=== PATIENT | female | born 1950 | race Caucasian/White ===

== ENCOUNTER 2016-09-25 13:49 | Inpatient (IN) | payer BC, OTHER ==
[~2016-09-25] VITALS: Ht 165.1 cm; Wt 58.0 kg
[~2016-09-25 13:49] MED LIST: ACET-1256 PO; ASPI81TA28 PO; ATOR-24 PO; CHOL100010 PO; CLOP1TAB15 PO; COEN1CAP28 PO; LISI2.5T5 PO; MAGN400T6 PO; METO25TA56 PO; MULT-506 PO; NITR0.4S UT; PROM25TA16 PO; ZNT150 PO
[2016-09-25] MEDS ORDERED: OMEG10007 PO (14:19)
[2016-09-25] MEDS ORDERED: CHOL1000 PO (14:19)
[2016-09-25] MEDS ORDERED: ATOR-22 PO (14:19)
[2016-09-25] MEDS ORDERED: CYAN10005 PO (14:19)
[2016-09-25 14:51] LABS: HEMATOCRIT 43.1 % (37-47); MEAN CELL VOLUME 93.7 fL (80-100); MEAN CORPUSCULAR HEMOGLOBIN 32.8 pg (25-34); PLATELET COUNT 275 K/uL (130-400); WHITE BLOOD COUNT 8.44 K/uL (4.8-10.8)
[2016-09-25 15:04] LABS: PROTHROMBIN TIME (PATIENT) 10.9 SECONDS (9.0-12.0)
[2016-09-25 15:07] LABS: BUN/CREATININE RATIO 19.3 (10-20); CALCIUM 9.2 mg/dl (8.5-10.1); CREATININE 0.84 mg/dl (0.60-1.20); POTASSIUM 4.3 mmol/L (3.5-5.1)
--- NOTE | 2016-09-25 15:09 | DIAGNOSTIC IMAGING REPORT ---
CHEST ONE VIEW PORTABLE HISTORY: Atypical chest pain. COMPARISON: Chest 03/21/2016. FINDINGS: The lungs are clear. Cardiac silhouette is normal in size. No pleural effusions. No pneumothorax. IMPRESSION: No acute process. Electronically signed by: Kartik Nair M.D. 09/25/2016 3:08 PM Dictated Date/Time: 09/25/2016 3:05 PM
[2016-09-25 15:12] LABS: ALB/GLOB RATIO 1.2 (0.9-2); CKMB/CK RATIO 1.2 (0-3.0)
[2016-09-25] MEDS ORDERED: NITROGLYCERIN 0.4 MG SL PER TAB CHARGE SL PRN (16:00)
[2016-09-25] MEDS ORDERED: ZOLPIDEM TARTRATE 5 MG TAB PO PRN (16:00)
[2016-09-25] MEDS ORDERED: MoRPHine SULFATE 2 MG/ML CARP IV PRN (16:00)
[2016-09-25] MEDS ORDERED: PROMETHAZINE HCL 25 MG TAB PO PRN (16:00)
[2016-09-25] MEDS ORDERED: ONDANSETRON INJ 2 MG/ML 2 ML VIAL IV PRN (16:00)
[2016-09-25] MEDS ORDERED: HEPARIN IV LOW DOSE NO BOLUS SCH (16:05)
[2016-09-25 17:09] LABS: CKMB/CK RATIO 1.1 (0-3.0)
[2016-09-25] MEDS ORDERED: METOPROLOL TARTRATE 25 MG TAB PO ONE (18:30)
[2016-09-25] MEDS: NSS + 20MEQ KCL 1000ML 1,000 ML IV SCH (18:31)
[2016-09-25] MEDS: HEPARIN 25,000 UNIT/500ML D5W 500 ML IV PRN (18:35)
[2016-09-25 18:47] VITALS: BP 130/80; PULSE 80; TEMP 36.6; Ht 165.1 cm; Wt 58.0 kg
[2016-09-25 19:25] VITALS: BP 138/87; PULSE 76; TEMP 36.9; O2SAT 94
[2016-09-25 20:00] VITALS: O2SAT 94
[2016-09-25] MEDS: METOPROLOL TARTRATE 25 MG TAB PO SCH (21:00)
[2016-09-25] MEDS ORDERED: NON-FORMULARY MEDICATION (Coenzyme Q10 (Ubidecarenone) (Co Q10) 2 CAP) PO SCH (21:00)
[2016-09-25] MEDS: RANITIDINE HCL 150 MG TAB PO SCH (21:32)
--- NOTE | 2016-09-25 21:32 | History and Physical ---
History & Physical Date & Time of Service: Sep 25, 2016 at 21:20 Chief Complaint: Hx Of Non-St Elevation Myocardial Infarction Primary Care Physician: Kirk Palm M.D. History of Present Illness Source: patient, spouse The patient is a 66-year-old female, status post NSTEMI in March 2016, and has since undergone supervised cardiac rehabilitation, and then graduated to her own cardiac rehabilitation. She reports that 4 days ago she had noted herself being more tired than usual, but continued to go to her walking and then treadmill self supervised exercise program. Yesterday she changed from treadmill to elliptical, maintained her heart rate in the low 100s, which was within her guidelines, and then today developed left-sided chest discomfort and shortness of breath. She reports at this point she stopped her exercise program again was feeling fatigued, she then attempted to walk back home, became too tired, and sat down and called her . When she got home she called her PCP, who then advised calling her computer hardware technician who then advised coming to the emergency department for assessment. Past Medical/Surgical History Medical Problems: (1) Hyperlipidemia Nec/Nos Status: Chronic (2) Osteoporosis Nos Status: Chronic (3) Osteoporosis Nos Status: Chronic (4) Rectal & Anal Hemorrhage Status: Resolved Family History Cancer Heart disease Social History Smoking Status: Never Smoker Smokeless Tobacco Use: No Alcohol Use: none Drug Use: none Marital Status: Housing status: lives with family Occupational Status: employed Multi-Drug Resistant Organisms History of MDRO: No Allergies Coded Allergies: No Known Allergies (Unverified , 03/17/16) Home Medications Scheduled Aspirin (Aspirin Ec), 81 MG PO DAILY Atorvastatin (Lipitor), 20 MG PO DAILY Cholecalciferol (Vitamin D3), 2,000 UNITS PO DAILY Clopidogrel (Plavix), 75 MG PO QAM Coenzyme Q10 (Ubidecarenone) (Co Q10), 2 CAP PO BID Cyanocobalamin (Vitamin B-12), 1,000 MCG PO DAILY Fish Oil ([place]-3), 600 MG PO BID Magnesium Oxide (Mag-Ox), 400 MG PO DAILY Metoprolol Tartrate (Lopressor) (Lopressor), 25 MG PO BID Multivitamin (Multivitamin), 1 TAB PO QAM Ranitidine HCl (Ranitidine HCl), 150 MG PO BID Scheduled PRN Acetaminophen (Tylenol), 1,000 MG PO UD PRN for Migraine Nitroglycerin (Nitrostat), 0.4 MG UT UD PRN for Chest Pain Promethazine HCl (Promethazine HCl), 25 MG PO Q6H PRN for Migraine Review of Systems The patient denies cough, lower extremity swelling, vision change, hearing change, sore throat, fevers, chills, sweats, weight change, nausea, vomiting, abdominal pain, pelvic pain, blood in urine or stool, dysuria, urinary frequency or urgency, lightheadedness, dizziness, headache, memory loss, rash, abnormal bruising or bleeding, imbalance, focal weakness, numbness or tingling in arms or legs, arthralgias or myalgias, back or neck pain, night sweats, or allergy symptoms. The review of systems is otherwise negative other than for that already noted above, and at least 10 systems have been reviewed. Physical Exam Vital Signs Date Time Temp Pulse Resp B/P Pulse Ox O2 Delivery O2 Flow Rate FiO2 09/25/16 20:00 94 Room Air 09/25/16 19:25 36.9 76 16 138/87 94 Room Air 09/25/16 18:47 36.6 80 16 130/80 Room Air 09/25/16 17:32 36.6 79 16 129/79 97 09/25/16 17:06 79 16 97 09/25/16 17:01 129/79 09/25/16 16:48 141/89 09/25/16 16:06 77 13 99 09/25/16 16:01 145/84 09/25/16 16:00 80 16 98 09/25/16 15:31 144/93 09/25/16 15:30 76 17 100 09/25/16 15:24 73 09/25/16 15:01 143/83 09/25/16 14:42 97 Room Air 09/25/16 14:40 71 18 143/74 99 Room Air 09/25/16 13:52 36.6 78 18 142/86 98 Room Air The patient is awake, well-developed and adequately nourished, alert and oriented 3, normocephalic and atraumatic, lying in bed and in no acute distress. HEENT--PERRL, EOMI, mucous membranes and oropharynx dry. Neck--supple, no JVD or bruits, thyroid normal, trachea midline, no adenopathy. Heart--normal S1 and S2, no extra beats, no murmurs, rubs or gallops. Lungs--clear bilaterally with good air movement, no respiratory distress, no accessory muscle use. Abdomen--normal bowel sounds and soft, nontender and nondistended, no hernias or masses, no organomegaly. Extremities--no cyanosis, clubbing or edema. There are good distal pulses b/l. Dermatologic--normal skin turgor, normal color, warm and dry, no abnormal lymph nodes, no rash. Neurologic--cranial nerves II through XII grossly intact, motor and sensory examination normal. Rheumatologic--normal range of motion, nontender, muscles and joints. Psychiatric--mildly anxious. Diagnostics Laboratory Results Results Past 24 Hours Test 09/25/16 14:36 09/25/16 14:39 09/25/16 16:24 Range/Units White Blood Count 8.44 4.8-10.8 K/uL Red Blood Count 4.60 4.2-5.4 M/uL Hemoglobin 15.1 12.0-16.0 g/dL Hematocrit 43.1 37-47 % Mean Corpuscular Volume 93.7 80-100 fL Mean Corpuscular Hemoglobin 32.8 25-34 pg Mean Corpuscular Hemoglobin Concent 35.0 32-36 g/dl RDW Standard Deviation 41.4 36.4-46.3 fL RDW Coefficient of Variation 12.3 11.5-14.5 % Platelet Count 275 130-400 K/uL Mean Platelet Volume 10.0 7.4-10.4 fL Prothrombin Time 10.9 9.0-12.0 SECONDS Prothromb Time International Ratio 1.0 0.9-1.1 Activated Partial Thromboplast Time 25.7 21.0-31.0 SECONDS Partial Thromboplastin Ratio 1.0 Sodium Level 141 136-145 mmol/L Potassium Level 4.3 3.5-5.1 mmol/L Chloride Level 105 98-107 mmol/L Carbon Dioxide Level 30 21-32 mmol/L Anion Gap 6.0 3-11 mmol/L Blood Urea Nitrogen 16 7-18 mg/dl Creatinine 0.84 0.60-1.20 mg/dl Est Creatinine Clear Calc Drug Dose 58.5 ml/min Estimated GFR () 85.1 Estimated GFR (Non- 73.4 BUN/Creatinine Ratio 19.3 10-20 Random Glucose 94 70-99 mg/dl Calcium Level 9.2 8.5-10.1 mg/dl Total Bilirubin 0.6 0.2-1 mg/dl Aspartate Amino Transf (AST/SGOT) 24 15-37 U/L Alanine Aminotransferase (ALT/SGPT) 33 12-78 U/L Alkaline Phosphatase 99 45-117 U/L Total Creatine Kinase 95 90 26-192 U/L Creatine Kinase MB 1.1 1.0 0.5-3.6 ng/ml Creatine Kinase MB Ratio 1.2 1.1 0-3.0 Total Protein 7.4 6.4-8.2 gm/dl Albumin 4.1 3.4-5.0 gm/dl Globulin 3.3 2.5-4.0 gm/dl Albumin/Globulin Ratio 1.2 0.9-2 Bedside Troponin I 0.000 0-0.045 ng/ml Troponin I 0.046 0-0.045 ng/ml Diagnostic Radiology Patient Name: RAY WILEY Unit Number: [id number] Dictated: 09/25/161504 Transcribed: 09/25/16 150 [employer] Printed Date/Time: [~ rep prt dt]/[~ rep prt tm] [~ rep ct labl] - [~ rep ct ivnm] [facility] [place] [address] Dictated: 09/25/161504 Transcribed: 09/25/16 [employer] Printed Date/Time: [~ rep prt dt]/[~ rep prt tm] [~ rep ct labl] - [~ rep ct ivnm] CHEST ONE VIEW PORTABLE HISTORY: Atypical chest pain. COMPARISON: Chest 03/21/2016. FINDINGS: The lungs are clear. Cardiac silhouette is normal in size. No pleural effusions. No pneumothorax. IMPRESSION: No acute process. Electronically signed by: Kartik Nair M.D. 09/25/2016 3:08 PM Dictated Date/Time: 09/25/2016 3:05 PM The status of this report is Signed. Draft = Not yet reviewed or approved by Radiologist. Signed = Reviewed and approved by Radiologist. <AttendingPhy></AttendingPhy> <FamilyPhy>Kirk Palm M.D.</FamilyPhy> < PrimaryPhy>Kirk Palm M.D.</PrimaryPhy> <UnitNumber>[id number]</ UnitNumber> <VisitNumber>[id number]</VisitNumber> <PatientName>RAY WILEY</PatientName> <DateOfBirth>1950</DateOfBirth> <Location>[facility]</ Location> <ServiceDate>09/25/16</ServiceDate> <MNE>ESINDI</MNE> <OrderingPhy>ED , PROTOCOL</OrderingPhy> <OrderingPhyMNE>f rep ord dr hassan</OrderingPhyMNE> < DictatingPhyMNE>f rep dict dr hassan</DictatingPhyMNE> <CCListMNE>f rep ct mne</ CCListMNE> <AdmittingPhyMNE>f pt admit dr hassan</AdmittingPhyMNE> <AttendingPhyMNE >f pt attend dr hassan</AttendingPhyMNE> <ConsultingPhyMNE>f pt consult dr hassan</ConsultingPhyMNE> <FamilyPhyMNE>f pt fam dr hassan</FamilyPhyMNE> <OtherPhyMNE>f pt other dr hassan</OtherPhyMNE> < PrimaryPhyMNE>f pt prim care dr hassan</PrimaryPhyMNE> <ReferringPhyMNE>f pt referring dr hassan</ReferringPhyMNE> EKG EKG shows normal sinus rhythm at 72 bpm, with no acute ST-T changes, and no change from 03/22/2016. Impression Assessment and Plan CAD/hypertension/ NSTEMI/escalating symptoms consistent with unstable angina-- the patient will be admitted to the telemetry unit, for serial cardiac enzymes, cardiac rhythm monitoring and a 2-D echocardiogram with Dopplers. We'll continue aspirin 81 mg by mouth daily and clopidogrel 75 mg by mouth every morning. We will increase metoprolol tartrate 25 mg by mouth twice a day to 37.5 mg by mouth twice a day, with additional dose now. We'll place on Nitropaste 1 inch anterior chest wall every 6 hours, and heparin drip low-dose no bolus per weight-based protocol. We'll consult her computer hardware technician Dr. Kamara. Hypercholesterolemia--continue atorvastatin 20 mg by mouth daily and CoQ10 100 mg by mouth twice a day. GERD continue ranitidine 150 mg by mouth twice a day. Vitamin B-12 deficiency--continue supplemental thousand micrograms by mouth daily. Level of Care Telemetry Advanced Directives Existing Advance Directive: No Existing Living Will: Yes Existing Power of Chip Person: Yes Resuscitation Status FULL RESUSCITATION VTE Prophylaxis VTE Risk Assessment Done? Y/N: Yes Risk Level: Moderate Given or contraindicated: Unfractionated heparin SQ
[2016-09-25] MEDS: NITROGLYCERIN OINT 2% 1GM PACKET EXT SCH (21:38)
[2016-09-25 21:48] VITALS: BP 122/78; PULSE 64
--- NOTE | 2016-09-25 22:16 | EMERGENCY ROOM VISIT NOTE ---
History Report prepared by Ruchi: Duane Blackburn Under the Supervision of: Dr. Tye Hawley M.D. First contact with patient: 14:57 Chief Complaint: CHEST PAIN Stated Complaint: CHEST PAIN Nursing Triage Summary: pt reports having mi in mar after working out today got sharp feeling in left chest. denies any nausea feels clammy. started at 1315 History of Present Illness The patient is a 66 year old female who presents to the Emergency Room with complaints of resolved left-sided chest pain that occurred earlier today. The episode lasted about 30 minutes in total. She notes that the pain was sharp in nature. The patient was on a recumbent bike when the pain started. She had an NSTEMI on March 17. The patient notes that the pain when she had the WV was pressure-like, lasted all day, and was in the middle of her chest. Her pain today does not resemble the pain from her NSTEMI. She did not have any stents or angioplasty. The patient has been doing cardiac rehabilitation exercises. She was doing her rehabilitation exercises today when she had the pain, but notes that she was not over-exerting herself. She denies any fevers, cough, or calf pain or swelling. The patient has chronic hip pain but denies any swelling or pain to her legs otherwise. She denies any history of pulmonary emboli. The patient was not on any recent long trips. She does not smoke. Source of History: patient Onset: earlier today Position: chest (left) Quality: sharp Timing: resolved Modifying Factors (Worsening): exertion Associated Symptoms: No cough, No fevers Review of Systems See HPI for pertinent positives & negatives. A total of 10 systems reviewed and were otherwise negative. Past Medical & Surgical Medical Problems: (1) Chest pain (2) History of non-ST elevation myocardial infarction (NSTEMI) (3) Hyperlipidemia Nec/Nos (4) NSTEMI (non-ST elevated myocardial infarction) (5) Osteoporosis Nos (6) Osteoporosis Nos (7) Rectal & Anal Hemorrhage (8) Unstable angina Family History Cancer Heart disease Social History Smoking Status: Never Smoker Alcohol Use: occasionally Marital Status: Housing Status: lives with family Occupation Status: employed Current/Historical Medications Scheduled Aspirin (Aspirin Ec), 81 MG PO DAILY Atorvastatin (Lipitor), 20 MG PO DAILY Cholecalciferol (Vitamin D3), 2,000 UNITS PO DAILY Clopidogrel (Plavix), 75 MG PO QAM Coenzyme Q10 (Ubidecarenone) (Co Q10), 2 CAP PO BID Cyanocobalamin (Vitamin B-12), 1,000 MCG PO DAILY Fish Oil ([place]-3), 600 MG PO BID Magnesium Oxide (Mag-Ox), 400 MG PO DAILY Metoprolol Tartrate (Lopressor) (Lopressor), 25 MG PO BID Multivitamin (Multivitamin), 1 TAB PO QAM Ranitidine HCl (Ranitidine HCl), 150 MG PO BID Scheduled PRN Acetaminophen (Tylenol), 1,000 MG PO UD PRN for Migraine Nitroglycerin (Nitrostat), 0.4 MG UT UD PRN for Chest Pain Promethazine HCl (Promethazine HCl), 25 MG PO Q6H PRN for Migraine Allergies Coded Allergies: No Known Allergies (Unverified , 03/17/16) Physical Exam Vital Signs Date Time Temp Pulse Resp B/P Pulse Ox O2 Delivery O2 Flow Rate FiO2 09/25/16 15:31 144/93 09/25/16 15:30 76 17 100 09/25/16 15:24 73 09/25/16 15:01 143/83 09/25/16 14:42 97 Room Air 09/25/16 14:40 71 18 143/74 99 Room Air 09/25/16 13:52 36.6 78 18 142/86 98 Room Air Physical Exam Constitutional: Vital signs reviewed. Eyes: Pupils are equal round reactive to light. Conjunctiva are noninjected. ENT: Pharynx is clear without erythema or exudate. Mucous membranes are moist. Neck supple without meningeal signs. Respiratory: Clear to auscultation bilaterally. Breath sounds are equal bilaterally. Cardiovascular: Regular rate and rhythm. No rubs or gallops. GI: Soft, nondistended and nontender. Bowel sounds are present. Musculoskeletal: No peripheral edema. No lower extremity tenderness. Integumentary: No cyanosis. Neurological: The patient is awake and alert. No focal deficits. Psychiatric: Normal affect. Medical Decision & Procedures ER Provider Diagnostic Interpretation: X-ray results as stated below per interpretation by me and the radiologist: CHEST ONE VIEW PORTABLE HISTORY: Atypical chest pain. COMPARISON: Chest 03/21/2016. FINDINGS: The lungs are clear. Cardiac silhouette is normal in size. No pleural effusions. No pneumothorax. IMPRESSION: No acute process. Electronically signed by: Kartik Nair M.D. 09/25/2016 3:08 PM Dictated Date/Time: 09/25/2016 3:05 PM Laboratory Results 09/25/16 14:36 09/25/16 14:36 Test 09/25/16 14:36 09/25/16 14:39 Red Blood Count 4.60 M/uL (4.2-5.4) Mean Corpuscular Volume 93.7 fL (80-100) Mean Corpuscular Hemoglobin 32.8 pg (25-34) Mean Corpuscular Hemoglobin Concent 35.0 g/dl (32-36) RDW Standard Deviation 41.4 fL (36.4-46.3) RDW Coefficient of Variation 12.3 % (11.5-14.5) Mean Platelet Volume 10.0 fL (7.4-10.4) Prothrombin Time 10.9 SECONDS (9.0-12.0) Prothromb Time International Ratio 1.0 (0.9-1.1) Activated Partial Thromboplast Time 25.7 SECONDS (21.0-31.0) Partial Thromboplastin Ratio 1.0 Anion Gap 6.0 mmol/L (3-11) Est Creatinine Clear Calc Drug Dose 58.5 ml/min Estimated GFR () 85.1 Estimated GFR (Non- 73.4 BUN/Creatinine Ratio 19.3 (10-20) Calcium Level 9.2 mg/dl (8.5-10.1) Total Bilirubin 0.6 mg/dl (0.2-1) Aspartate Amino Transf (AST/SGOT) 24 U/L (15-37) Alanine Aminotransferase (ALT/SGPT) 33 U/L (12-78) Alkaline Phosphatase 99 U/L (45-117) Total Protein 7.4 gm/dl (6.4-8.2) Albumin 4.1 gm/dl (3.4-5.0) Globulin 3.3 gm/dl (2.5-4.0) Albumin/Globulin Ratio 1.2 (0.9-2) Bedside Troponin I 0.000 ng/ml (0-0.045) Laboratory results as reviewed by me. ECG Indication: chest pain Rate (beats per minute): 72 Rhythm: normal sinus Findings: no acute ischemic change, no ectopy ED Course 1459: The patient was evaluated in room B11b. A complete history and physical exam was performed. 151: Reassessed the patient. She is not having any chest discomfort. I discussed the results with her. I recommended hospitalization. 1520: Discussed the case with Dr. Narvaez, [facility]. The patient will be evaluated. Medical Decision This is a 66-year-old female who presents with chest pain. Differential diagnosis includes unstable angina, WV, pleurisy, pericarditis, GERD. I did perform a limited focused review of portions of the patient's old chart on the electronic medical record. The patient had an NSETMI in March of last year. I did evaluate the patient as noted above. The patient is presenting with exertional chest pain. She does have a history of non-STEMI. She notes that when she was admitted to the hospital for her non-STEMI previously her initial troponin was negative. She is currently not having any chest discomfort. IV access was established. The patient was placed on a continuous satellite project site monitor. I did order and personally review the patient's 12-lead EKG and chest x-ray as described above. I did order and review the patient's blood work as noted in the electronic medical record. Initial troponin is negative. I did discuss the test results with the patient. I did recommend hospitalization for further evaluation. I did discuss the case with the hospitalist and cyanide case hardener. Consults Time Called: 1514 Consulting Physician: Dr. Narvaez [facility] Returned Call: [phone]: Discussed the case with Dr. Narvaez, [facility]. The patient will be evaluated. Impression Primary Impression: Exertional chest pain Scribe Attestation The scribe's documentation has been prepared under my direct and personally reviewed by me in its entirety. I confirm that the note above accurately reflects all work, treatment, procedures, and medical decision making performed by me. Departure Information Dispostion Being Evaluated By Hospitalist Referrals Kirk Palm M.D. (PCP) Patient Instructions [facility]
[2016-09-25] MEDS: ACETAMINOPHEN 325 MG TAB PO PRN (23:53)
[2016-09-25 23:59] VITALS: BP 109/66; PULSE 62; TEMP 36.9; O2SAT 93
[2016-09-26 01:35] LABS: PARTIAL THROMBOPLASTIN RATIO 1.4
[2016-09-26] MEDS ORDERED: HEPARIN IV BOLUS 4,000 UNIT in SYRINGE 0 ML IV ONE (02:45)
[2016-09-26] MEDS: NSS + 20MEQ KCL 1000ML 1,000 ML IV SCH ×2 (03:23→14:00)
[2016-09-26 03:41] VITALS: BP 95/51; PULSE 56; TEMP 37; O2SAT 97
[2016-09-26] MEDS: NITROGLYCERIN OINT 2% 1GM PACKET EXT SCH ×3 (05:30→12:53)
[2016-09-26] MEDS: ACETAMINOPHEN 325 MG TAB PO PRN (05:39)
[2016-09-26 08:12] LABS: BASO % 0.8 %; BASO ABS # 0.05 K/uL (0-0.2); COMPLETE YES; EOS % 0.5 %; HEMATOCRIT 40.1 % (37-47); IG% 0.2 %; LYMPH % 28.2 %; LYMPH ABS # 1.79 K/uL (1.2-3.4); MEAN CELL VOLUME 94.4 fL (80-100); MEAN CORPUSCULAR HEMOGLOBIN 31.5 pg (25-34); MEAN CORPUSCULAR HGB CONC 33.4 g/dl (32-36); MEAN PLATELET VOLUME 10.2 fL (7.4-10.4); MONO % 8.4 %; NEUT % 61.9 %; PLATELET COUNT 258 K/uL (130-400); RED BLOOD COUNT 4.25 M/uL (4.2-5.4); WHITE BLOOD COUNT 6.34 K/uL (4.8-10.8)
[2016-09-26 08:45] LABS: INR 1.1 (0.9-1.1); PARTIAL THROMBOPLASTIN RATIO 2.8; PROTHROMBIN TIME (PATIENT) 11.4 SECONDS (9.0-12.0)
[2016-09-26 08:54] LABS: ALKALINE PHOSPHATASE 80 U/L (45-117); ALT/SGPT 24 U/L (12-78); AST/SGOT 21 U/L (15-37); BLOOD UREA NITROGEN 9 mg/dl (7-18); BUN/CREATININE RATIO 11.6 (10-20); CALCIUM 8.6 mg/dl (8.5-10.1); CARBON DIOXIDE 25 mmol/L (21-32); CHLORIDE 109 mmol/L (98-107); CKMB/CK RATIO 1.5 (0-3.0); GLUCOSE 144 mg/dl (70-99); MAGNESIUM 2.1 mg/dl (1.8-2.4); POTASSIUM 3.8 mmol/L (3.5-5.1); SODIUM 143 mmol/L (136-145)
[2016-09-26] MEDS ORDERED: ASPIRIN 81 MG ECTAB PO SCH (09:00)
[2016-09-26] MEDS ORDERED: CYANOCOBALAMIN 500 MCG TAB (VIT B-12) PO SCH (09:00)
[2016-09-26] MEDS ORDERED: CLOPIDOGREL BISULFATE 75 MG TAB PO SCH (09:00)
[2016-09-26] MEDS ORDERED: MULTIVITAMIN TAB PO SCH (09:00)
[2016-09-26] MEDS ORDERED: ATORVASTATIN 20 MG TAB PO SCH (09:00)
[2016-09-26] MEDS ORDERED: MAGNESIUM OXIDE 400 MG TAB PO SCH (09:00)
[2016-09-26] MEDS ORDERED: CHOLECALCIFEROL 1000 INTER.UNIT TAB PO SCH (09:00)
[2016-09-26] MEDS: RANITIDINE HCL 150 MG TAB PO SCH (09:10)
[2016-09-26] MEDS: METOPROLOL TARTRATE 25 MG TAB PO SCH (09:10)
[2016-09-26 09:12] VITALS: BP 117/66; PULSE 78; TEMP 37; O2SAT 97
[2016-09-26] MEDS: HEPARIN 25,000 UNIT/500ML D5W 500 ML IV PRN (10:09)
[2016-09-26 10:47] VITALS: BP 98/60; PULSE 53; TEMP 36.8; O2SAT 95
[2016-09-26] MEDS ORDERED: NURSING VERBAL MED ORDER ONE (12:40)
--- NOTE | 2016-09-26 12:40 | EXERCISE STRESS ECHO ---
*NOTICE TO RECEIVING [employer] This information is strictly Confidential and protected under [place] law. [place] law prohibits you from making any further disclosure of this information unless further disclosure is expressly permitted by the written consent of the person to whom it pertains or is authorized by law. A general authorization for the release of medical or other information is not sufficient for this purpose. Hospital accepts no responsibility if the information is made available to any other person, INCLUDING THE PATIENT. Interpretation Summary * Name: RAY WILEY Study Date: 09/26/2016 10:31 AM BP: 95/51 mmHg * Patient Location: [facility] HR: 56 * : 1950 (M/d/yyyy) Gender: Female Height: 64 in * Age: 66 yrs Ethnicity: [place] Weight: 127 lb * Ordering Physician: Christopher. LAKEISHA Wilkerson * Performed By: Tita Leon * * Reason For Study: CHEST PAIN, HX OF NSTEMI * BSA: 1.6 m2 * -- Conclusions -- * 1. Negative exercise stress echocardiogram for ischemia at 83% MPHR. * 2. Negative stress ECG for ischemia. * 3. Excellent functional capacity. Exercised for 9:36 min, achieving 11 METS. No exercise induced chest pain. * 4. Normal resting LV size and function. No regional wall motion abnormalities. Normal RV size and function. No significant valvular pathology. * 5. Compared with prior resting TTE on 03/18/2016: Apical wall motion abnormality no longer present. Procedure Details * ECHOEX, CPT #[id number] * ECHO DOPPLER, CPT #[id number] * ECHO COLOR FLOW, CPT #[id number] Left Ventricular Findings with Stress * This was essentially a normal study. Left Ventricle * The left ventricle is normal in size. * There is normal left ventricular wall thickness. * Ejection Fraction = 65-70%. * Resting wall motion: Normal. Stress wall motion: Appropriate increase in Left ventricular systolic function and decrease in cavity size. No stress induced segmental wall motion abnormalities. * No regional wall motion abnormalities noted. Right Ventricle * The right ventricle is grossly normal size. * The right ventricular systolic function is normal as assessed by tricuspid annular plane systolic excursion (TAPSE) (normal >1.5 cm). Atria * The left atrial size is normal. * Right atrial size is normal. * No ASD detected; PFO is not assessed. Mitral Valve * The mitral valve is grossly normal. * There is no mitral valve stenosis. * There is trace mitral regurgitation. Tricuspid Valve * The tricuspid valve is not well visualized, but is grossly normal. * There is no tricuspid stenosis. * There is mild tricuspid regurgitation. * Right ventricular systolic pressure is normal. Aortic Valve * The aortic valve opens well. * The aortic valve is trileaflet. * Aortic stenosis is absent. * There is no significant aortic regurgitation. Pulmonic Valve * The pulmonary valve is inadequately visualized, but the Doppler data is adequate for interpretation. * Mild pulmonic valvular regurgitation. Great Vessels * The aortic root and proximal ascending aorta are normal sized. * No Doppler or imaging evidence of an aortic coarctation. Pericardium * There is no pericardial effusion. Stress Parameters * Normal baseline electrocardiogram. * Stress ECG: No ST changes. No arrhythmias. * No arrhythmia were noted with stress. * The stress portion of this study was personally supervised by the undersigned interpreting physician. * Rest heart rate was '75' BPM. * Rest blood pressure was '132/64' * Maximum heart rate achieved was 131 bpm. * Maximum heart rate was 83 % of maximum age-predicted heart rate. * Maximum blood pressure was '132/64' * Total exercise time was '8:50' * Maximum exercise MET level achieved was '11.0' METS * Maximum treadmill speed was '4.20' miles per hour. * Maximum treadmill elevation was '16.00'% grade. * Exercise was terminated due to 'fatigue.' * Target Heart Rate was not achieved due to fatigue. * The patient exhibited fatigue during exercise. * Normal blood pressure response to exercise. Left Ventricular Findings with Stress * The study was diagnostic quality. * The study was technically excellent with all images being of optimal quality. MMode 2D Measurements and Calculations IVSd 1.0 cm IVSs 1.5 cm LVIDd 4.5 cm LVIDs 2.7 cm LVPWd 0.87 cm LVPWs 1.5 cm IVS/LVPW 1.2 FS 39.1 % EDV(Teich) 92.6 ml ESV(Teich) 28.1 ml EF(Teich) 69.6 % EDV(cubed) 91.3 ml ESV(cubed) 20.7 ml EF(cubed) 77.4 % % IVS thick 49.4 % % LVPW thick 68.3 % LV mass(C)d 143.9 grams LV mass(C)dI 89.2 grams/m\S\2 LV mass(C)s 142.5 grams LV mass(C)sI 88.4 grams/m\S\2 CO(Teich) 3.5 l/min CI(Teich) 2.2 l/min/m\S\2 SV(Teich) 64.4 ml SI(Teich) 40.0 ml/m\S\2 CO(cubed) 3.9 l/min CI(cubed) 2.4 l/min/m\S\2 SV(cubed) 70.6 ml SI(cubed) 43.8 ml/m\S\2 ACS 1.6 cm LA dimension 3.2 cm asc Aorta Diam 2.8 cm LVOT diam 1.8 cm LVOT area 2.5 cm\S\2 LVAd ap4 19.2 cm\S\2 LVLd ap4 5.7 cm EDV(MOD-sp4) 53.8 ml LVAs ap4 9.6 cm\S\2 LVLs ap4 4.6 cm ESV(MOD-sp4) 17.0 ml EF(MOD-sp4) 68.4 % LVAd ap2 19.1 cm\S\2 LVLd ap2 6.4 cm EDV(MOD-sp2) 48.2 ml LVAs ap2 9.3 cm\S\2 LVLs ap2 4.8 cm ESV(MOD-sp2) 14.9 ml EF(MOD-sp2) 69.1 % CO(MOD-sp4) 2.0 l/min CI(MOD-sp4) 1.3 l/min/m\S\2 SV(MOD-sp4) 36.8 ml SI(MOD-sp4) 22.8 ml/m\S\2 CO(MOD-sp2) 1.8 l/min CI(MOD-sp2) 1.1 l/min/m\S\2 SV(MOD-sp2) 33.3 ml SI(MOD-sp2) 20.6 ml/m\S\2 Doppler Measurements and Calculations MV E max deepa 63.5 cm/sec MV A max deepa 72.8 cm/sec MV E/A 0.87 MV dec time 0.13 sec Ao V2 max 132.6 cm/sec Ao max PG 7.0 mmHg Ao max PG (full) 3.2 mmHg ANA(V,A) 1.8 cm\S\2 ANA(V,D) 1.8 cm\S\2 LV V1 max PG 3.8 mmHg LV V1 max 97.5 cm/sec PA V2 max 66.9 cm/sec PA max PG 1.8 mmHg PI end-d deepa 87.6 cm/sec TR max deepa 244.7 cm/sec
--- NOTE | 2016-09-26 14:28 | Discharge Instructions ---
Discharge Instructions Date of Service Sep 26, 2016. Admission Reason for Admission: chest pain Discharge Discharge Diagnosis / Problem: Chest pain - heart attack ruled out; negative stress test. Discharge Goals Goal(s): Learn about illness, Diagnostic testing, Therapeutic intervention Activity Recommendations Activity Limitations: as noted below Lifting Limitations: gradually increase as tolerated Exercise/Sports Limitations: gradually increase as tolerated Driving or Machine Use: no limitations . Instructions / Follow-Up Instructions / Follow-Up From Dr. Haque - Janice. Please call Dr. Kamara's office early this coming week to schedule a follow-up appointment in 1-2 weeks. If you continue to experience episodes of chest pain you need to see him immediately or come back to the emergency room at [facility]. 2. No medication changes have been recommended. 3. Other instructions: Activation of Emergency Medical System: Call 911, immediately, if you experience any of the following: Warning Signs and Symptoms of a Heart Attack: * Chest pain that is not relieved by medication * Shortness of breath Otherwise, call your doctor immediately if you have: * Lightheadedness, dizziness, or fainting * Feeling of irregular heartbeat or fast pulse Home Care: * Take your medications exactly as directed. Don't skip doses. * If you are having chest pain, call 911 for an ambulance. Do NOT drive yourself to the hospital. * Ask your family members to learn CPR. * Learn to take your own blood pressure and pulse. Keep a record of your results. Ask your doctor when you should seek emergency medical attention. He or she will tell you which blood pressure reading is dangerous. Lifestyle Changes: * Maintain a healthy weight. Get help to lose any extra pounds. * Cut back on salt. 1. Limit canned, dried, packaged, and fast foods. 2. Don't add salt to your food. 3. Season foods with herbs instead of salt when you cook. * Limit fatty foods. * Check your lipid levels regularly. (Your doctor can show you how to do this. ) * Try to manage stress. Current Hospital Diet Patient's current hospital diet: AHA Diet (Heart Healthy) Discharge Diet Recommended Diet: AHA Diet (Heart Healthy) Procedures Procedures Performed: exercise stress test and echocardiogram NORMAL. no signs of poor blood flow/blockage to any part of the heart muscle. Pending Studies Studies pending at discharge: no Medical Emergencies . Who to Call and When: Medical Emergencies: If at any time you feel your situation is an emergency, please call 911 immediately. . Non-Emergent Contact Non-Emergency issues call your: Chopper Feeder Call Non-Emergent contact if: your pain is not controlled, your pain is worsening, your pain is concerning you, you have any medication questions . . "Provider Documentation" section prepared by Hernandez Haque. VTE Core Measure Inpt VTE Proph given/why not?: Unfractionated heparin SQ
[2016-09-26 14:48] VITALS: BP 98/60; PULSE 53; TEMP 36.8; O2SAT 95
--- NOTE | 2016-09-27 02:56 | CARDIOLOGY CONSULTATION ---
DATE OF CONSULTATION: 09/26/2016 REASON FOR CONSULTATION: Chest pain, history of coronary artery disease. REFERRING PHYSICIAN: Dr. Narvaez. PRIMARY MAT WEAVER: Dr. Frandy Kamara. HISTORY OF PRESENT ILLNESS: Ms. Gasca is a 66-year-old woman with a history of coronary artery disease status post NSTEMI in March 2016, managed medically, who was admitted yesterday with new onset chest pain. The patient had presented back in March with acute onset of chest pain and was noted to have a troponin greater than 20. Underwent a cardiac catheterization, which showed subtotal occlusion of a very distal/apical LAD. This was managed medically with dual antiplatelet therapy and appropriate secondary prevention medicines. The patient underwent cardiac rehab and has remained active since that time with no recurrent chest pain. Yesterday, the patient was doing more exercise using an elliptical, which she usually did not do when noted fatigue, then while walking home noticed some chest pain radiating to her arm. She felt generally weak and as a result presented to the ED. Upon presentation, her EKG was unremarkable. She had initial troponin that trended just above the upper limits of normal before trending back down to normal. She has remained chest pain free while in the hospital. PAST MEDICAL HISTORY: 1. Coronary artery disease status post NSTEMI managed medically in March 2016. 2. Osteoporosis. 3. Prior hemorrhoids. FAMILY HISTORY: No family history of premature coronary artery disease. SOCIAL HISTORY: Lifelong nonsmoker. Denies significant alcohol or illicit drugs. She lives with her . ALLERGIES: No known drug allergies. HOME MEDICATIONS: Aspirin 81, atorvastatin 20, vitamin D, Plavix 75 mg, Coenzyme Q10, fish oil, magnesium oxide, metoprolol 25 mg p.o. b.i.d., multivitamin, ranitidine. REVIEW OF SYSTEMS: A 10-point review of systems was completed, otherwise negative as stated in HPI. PHYSICAL EXAMINATION: VITAL SIGNS: Temperature 36.8, pulse 78, blood pressure 117/66, satting 97% on room air. GENERAL: The patient appears well in no acute distress. HEENT: Sclerae anicteric. Oropharynx is clear. Mucous membranes are moist. NECK: Supple with no lymphadenopathy. LUNGS: Clear to auscultation bilaterally. HEART: She has a regular rate and rhythm with no murmurs, rubs or gallops. ABDOMEN: Her abdomen is soft, nontender, with positive bowel sounds. EXTREMITIES: Warm. She has no significant lower extremity edema. SKIN: Shows no rashes or lesions. NEUROLOGIC: Grossly nonfocal. PSYCHIATRIC: She is alert and oriented x3. Mood and affect are appropriate. LABORATORY DATA: White blood cell count 6.3, hemoglobin 13.4, platelets of 258. Sodium 143, potassium 2.8, BUN 9, creatinine 0.8. LFTs within normal limits. Troponin of 0.046, 0.05 and 0.044. IMAGING: Chest x-ray show no acute cardiopulmonary process. EKG showed normal sinus rhythm with no dynamic ST changes. Telemetry showed no complex arrhythmias. IMPRESSION AND PLAN: 1. Acute chest pain. 2. Minimally elevated troponin. 3. History of coronary artery disease. Patient here with acute onset of chest pain after exertion yesterday. She has a minimally elevated troponin just above the upper limit of normal, no EKG changes. Overall, suspicion for new high risk disease is relatively low, but with the patient's history, minimal troponin elevation feel further risk stratification is warranted. We will obtain an exercise stress echocardiogram today. If test is negative, the patient could be discharged home with plan for gradual return to normal exercise. In the interim, we will continue on current dual antiplatelet therapy, statin and beta-dolores. Plan of care was discussed with Dr. Haque. Thank you for allowing us to participate in the care of this patient. Please contact with any questions. CRISTIAN
--- NOTE | 2016-09-30 23:02 | Discharge Summary ---
Discharge Summary Date of Service Sep 30, 2016. Discharge Summary Admission Date: Sep 25, 2016 at 15:57 Discharge Date: Sep 26, 2016 Discharge Disposition: Home Principal Diagnosis: chest pain, ACS ruled out, negative stress test Problems/Secondary Diagnoses: 1. CAD s/p NSTEMI 2. hyperlipidemia 3. osteoporosis Procedures: Exercise Stress Echocardiogram: * -- Conclusions -- * 1. Negative exercise stress echocardiogram for ischemia at 83% MPHR. * 2. Negative stress ECG for ischemia. * 3. Excellent functional capacity. Exercised for 9:36 min, achieving 11 METS. No exercise induced chest pain. * 4. Normal resting LV size and function. No regional wall motion abnormalities. Normal RV size and function. No significant valvular pathology. * 5. Compared with prior resting TTE on 03/18/2016: Apical wall motion abnormality no longer present. Consultations: cardiology - Shane Wilkerson MD Medication Reconciliation Continued Medications: Acetaminophen (Tylenol) 500 Mg Tab 1000 MG PO UD PRN for Migraine, TAB Aspirin (Aspirin Ec) 81 Mg Tab 81 MG PO DAILY Atorvastatin (Lipitor) 20 Mg Tab 20 MG PO DAILY, TAB Cholecalciferol (Vitamin D3) 1,000 Unit Tab 2000 UNITS PO DAILY Clopidogrel (Plavix) 75 Mg Tab 75 MG PO QAM, TAB Coenzyme Q10 (Ubidecarenone) (Co Q10) 50 Mg Cap 2 CAP PO BID, CAP Cyanocobalamin (Vitamin B-12) 1,000 Mcg Tab 1000 MCG PO DAILY, TAB Fish Oil ([place]-3) 1 Ea Cap 600 MG PO BID, CAP Magnesium Oxide (Mag-Ox) 400 Mg Tab 400 MG PO DAILY, TAB Metoprolol Tartrate (Lopressor) (Lopressor) 25 Mg Tab 25 MG PO BID, TAB Multivitamin (Multivitamin) Tab 1 TAB PO QAM Nitroglycerin (Nitrostat) 0.4 Mg Sub 0.4 MG UT UD PRN for Chest Pain, BTL PLACE ONE TABLET UNDER THE TONGUE EVERY 5 MINUTES FOR UP TO 3 DOSES IF NEEDED FOR CHEST PAIN Promethazine HCl (Promethazine HCl) 25 Mg Tab 25 MG PO Q6H PRN for Migraine Ranitidine HCl (Ranitidine HCl) 150 Mg Tab 150 MG PO BID, #60 TAB 2 Refills Referrals At Discharge Follow up Referrals: [employer] [facility] Justice Referral - Within 1-2 Weeks with Frandy Kamara MD Discharge Exam Physical Exam: General Appearance: WD/WN, no apparent distress ENT: pharynx normal Neck: no JVD Respiratory/Chest: chest non-tender, lungs clear, no respiratory distress, no accessory muscle use Cardiovascular: regular rate, rhythm, no gallop, no murmur, normal peripheral pulses Abdomen / GI: normal bowel sounds, non tender, soft, no organomegaly Extremities: no pedal edema Neurologic/Psychiatric: alert, oriented x 3 Skin: no rash Hospital Course HISTORY OF PRESENT ILLNESS: The patient is a 66-year-old female, status post NSTEMI in March 2016 that was medically managed, and has since undergone supervised cardiac rehabilitation , and then graduated to her own cardiac rehabilitation. She reports that 4 days ago she had noted herself being more tired than usual, but continued to go to her walking and then treadmill self supervised exercise program. Yesterday she changed from treadmill to elliptical, maintained her heart rate in the low 100s, which was within her guidelines, and then today developed left-sided chest discomfort and shortness of breath. She reports at this point she stopped her exercise program again was feeling fatigued, she then attempted to walk back home, became too tired, and sat down and called her . She ultimately came to the [facility] emergency department for evaluation. HOSPITAL COURSE: The patient's brief stay was marked by stable vital signs, no further chest pain or other cardiopulmonary symptoms, normal telemetry, scantly elevated troponin, and ultimately a negative exercise stress echocardiogram. The previous apical wall motion abnormality seen on prior echocardiogram was in fact resolved. She was formally seen by Dr. Shane Wiklerson, [facility], and following the negative stress test was felt to be fit for discharge home. The exact etiology of her chest pain was uncertain but possibilities included musculoskeletal vs coronary vasospasm vs GI vs other. She was asked to follow-up with her primary shipping lead person, Dr. Frandy Kamara, within 1-2 weeks of discharge. No changes in medications were made during her hospitalization. Total Time Spent: Greater than 30 minutes This includes examination of the patient, discharge planning, medication reconciliation, and communication with other providers. Discharge Instructions Please refer to the electronic Patient Visit Report (Discharge Instructions) for additional information. Follow-Up see Dr. Frandy Kamara, cardiology, within 1-2 weeks Additional Copies To Shane Wilkerson MD; Kirk Palm M.D.; Frandy Kamara MD
== END 2016-09-26 15:10 | disposition home or self-care (01) | DRG 313 ==
LOC: ENRESERVTM → ENRESERVDT → C.EDB 13:50 → C.2T 15:57
PROVIDERS: ADMIT Hospitalist; ATTEND Internal Medicine
DX: R07.9 Chest pain, unspecified (principal); I25.10 Atherosclerotic heart disease of native coronary artery without angina pectoris; I25.2 Old myocardial infarction; M81.0 Age-related osteoporosis without current pathological fracture; I10 Essential (primary) hypertension; E78.00 Pure hypercholesterolemia, unspecified; E53.8 Deficiency of other specified B group vitamins; Y93.A1 Activity, exercise machines primarily for cardiorespiratory conditioning; K21.9 Gastro-esophageal reflux disease without esophagitis; Z79.02 Long term (current) use of antithrombotics/antiplatelets; Z79.82 Long term (current) use of aspirin; Z82.49 Family history of ischemic heart disease and other diseases of the circulatory system

== ENCOUNTER → 2016-12-01 | Outpatient (CLI) | payer BC ==
[~2016-12-01] MED LIST changes: +ATOR-22 PO; -ATOR-24 PO; +CHOL1000 PO; -CHOL100010 PO; +CHOL1TAB76 PO; +COEN1TAB3 PO; +CYAN10005 PO; +ESTR10TA PV; +FEXO1TAB49 PO; -LISI2.5T5 PO; +OMEG10007 PO; +RANI150T3 PO
== END | disposition home or self-care (01) ==
LOC: C.RDSM 15:40
PROVIDERS: ATTEND Family Medicine Sports Medicine
DX: M54.5 Low back pain (principal); M25.552 Pain in left hip

== ENCOUNTER → 2016-12-04 | Outpatient (CLI) | payer BC ==
--- NOTE | 2016-12-04 21:31 | DIAGNOSTIC IMAGING REPORT ---
MRI OF THE LEFT HIP WITHOUT CONTRAST CLINICAL HISTORY: Left hip pain. Osteoporosis. COMPARISON STUDY: Left hip radiograph December 01, 2016. TECHNIQUE: Utilizing a 1.5 Anais magnet and dedicated coil, multiplanar, multiecho imaging of the left hip was performed without intravenous or intraarticular contrast. FINDINGS: Alignment of left hip is anatomic. There is no evidence for avascular necrosis. There is no marrow edema to suggest a fracture. There is moderate superior joint space narrowing of the left hip with extensive osteophytosis. Subchondral cystic change within the acetabulum is noted. There is a trace left hip joint effusion. No areas of marrow replacement identified within the pelvis or hips. No mass or fluid collection shown adjacent to the left hip. Musculature is unremarkable. IMPRESSION: 1. Moderate to severe osteoarthritis of the left hip. 2. No evidence of fracture or avascular necrosis. Electronically signed by: Leroy Wise M.D. 12/04/2016 9:30 PM Dictated Date/Time: 12/04/2016 7:22 PM
== END | disposition home or self-care (01) ==
LOC: C.MRI 16:34
PROVIDERS: ATTEND Family Medicine Sports Medicine
DX: M16.12 Unilateral primary osteoarthritis, left hip (principal); M81.0 Age-related osteoporosis without current pathological fracture

== ENCOUNTER → 2017-03-29 | Outpatient (CLI) | payer BC ==
[~2017-03-29] MED LIST changes: -CHOL1TAB76 PO; -COEN1TAB3 PO; -ESTR10TA PV; -FEXO1TAB49 PO; -RANI150T3 PO
--- NOTE | 2017-03-29 16:08 | MAMMOGRAPHY REPORT ---
BILATERAL DIGITAL SCREENING MAMMOGRAM TOMOSYNTHESIS WITH CAD: 03/29/2017 CLINICAL HISTORY: Routine screening. Patient has no complaints. TECHNIQUE: Breast tomosynthesis in addition to standard 2D mammography was performed. Current study was also evaluated with a Computer Aided Detection (CAD) system. COMPARISON: Comparison is made to exams dated: 03/26/2016 mammogram, 01/01/2015 mammogram, 12/28/2013 m ammogram, 12/27/2012 mammogram, 12/23/2011 mammogram, and 12/19/2010 mammogram - [facility] enter. BREAST COMPOSITION: There are scattered areas of fibroglandular density in both breasts. FINDINGS: The parenchymal pattern is similar to prior mammograms. No developing mass, architectural distortion or cluster of suspicious microcalcifications is seen in either breast. IMPRESSION: ACR BI-RADS CATEGORY 2: BENIGN There is no mammographic evidence of malignancy. A 1 year screening mammogram is recommended. The pa tient will receive written notification of the results. Approximately 10% of breast cancers are not detected with mammography. A negative mammographic report should not delay biopsy if a clinically suggestive mass is present. Melly Ochoa M.D. ay/:03/29/2017 15:37:43 Fabrication Specialist: Sammie ZUNIGA(Jazlyn)(M), [facility] letter sent: Normal 1/2 BI-RADS Code: ACR BI-RADS Category 2: Benign
== END | disposition home or self-care (01) ==
LOC: C.MAMM 10:24
PROVIDERS: ATTEND Obstetrics & Gynecology
DX: Z12.31 Encounter for screening mammogram for malignant neoplasm of breast (principal)

== ENCOUNTER → 2017-03-31 | Outpatient (CLI) | payer BC | END | disposition home or self-care (01) | LOC: C.PAPS 14:41 | PROVIDERS: ATTEND Obstetrics & Gynecology | DX: Z01.419 Encounter for gynecological examination (general) (routine) without abnormal findings (principal); Z78.0 Asymptomatic menopausal state ==

== ENCOUNTER → 2017-06-07 | Day surgery (SDC) | payer BC ==
[2017-05-20 14:44] VITALS: Ht 163.8 cm; Wt 56.4 kg
[~2017-06-07] VITALS: Ht 163.8 cm; Wt 56.4 kg
[~2017-06-07] MED LIST changes: -CHOL1000 PO; +CHOL1TAB76 PO; -CLOP1TAB15 PO; -COEN1CAP28 PO; +COEN1TAB3 PO; +ESTR10TA PV; +FEXO1TAB49 PO; +LIDOCAINE HCL 2% 2 ML VIAL (20MG/ML) ONE; +MIDAZOLAM HCL 1 MG/ML 2ML VIAL ONE; +PROPOFOL IV EMULSION 10 MG/ML 20 ML VIAL IV ONE; +RANI150T3 PO; +SODIUM CHLORIDE 0.9% 500ML 500 ML IV ONE; -ZNT150 PO
--- NOTE | 2017-06-07 14:48 | Endo History and Physical ---
History & Physical Date of Service: Jun 07, 2017. Chief Complaint: Family history colon cancer Referring Physician: Dr. Kirk Palm History of Present Illness 67 yo CF who presents for colonoscopy secondary to family history of colon cancer. Past Medical History Osteoporosis, Other Past Surgical History Hx Cardiac Surgery: Yes (HEART CATH, NO STENTS) Hx Internal Defibrillator: No Hx Pacemaker: No Hx Abdominal Surgery: Yes (EMERGENCY APPY) Hx of Implantable Prosthesis: No Hx Post-Op Nausea and Vomiting: No Hx Cancer Surgery: No Hx Thoracic Surgery: No Hx Orthopedic: Yes (RT ELBOW CYST EXCISION) Hx Urinary Tract Surgery: No Family History Colon CA Social History Smoking Status: Never Smoker Hx Substance Use: No Hx Alcohol Use: Yes (OCCASIONAL/SOCIAL) Allergies Coded Allergies: No Known Allergies (Verified , 06/07/17) Current Medications Reported Home Medications Medications Dose Route/Sig Max Daily Dose Days Date Category Dose Instructions Coenzyme Q10 (Coenzyme Q10 (Ubidecarenone)) 100 Mg Tab 1 Tab PO BID 05/20/17 Reported Vagifem (Estradiol Vaginal) 10 Mcg Tab 1 Tab PV 2XWK 05/20/17 Reported Zantac (Ranitidine HCl) 150 Mg Tab 150 Mg PO BID 05/20/17 Reported Keri Allergy (Fexofenadine Hcl) 180 Mg Tab 1 Tab PO QAM 05/20/17 Reported D 2000 (Cholecalciferol) 2,000 Unit Tab 1 Tab PO QAM 05/20/17 Reported Vitamin B-12 (Cyanocobalamin) 1,000 Mcg Tab 1,000 Mcg PO QAM 09/25/16 Reported [place]-3 (Fish Oil) 1 Ea Cap 1,000 Mg PO BID 09/25/16 Reported Lipitor (Atorvastatin Calcium) 20 Mg Tab 20 Mg PO QPM 09/25/16 Reported Promethazine HCl 25 Mg Tab 25 Mg PO Q6H PRN 03/21/16 Reported Tylenol (Acetaminophen) 500 Mg Tab 1,000 Mg PO UD PRN 03/21/16 Reported Aspirin Ec (Aspirin) 81 Mg Tab 81 Mg PO QAM 03/21/16 Reported Lopressor (Metoprolol Tartrate) 25 Mg Tab 25 Mg PO BID 03/21/16 Reported Nitrostat (Nitroglycerin) 0.4 Mg Sub 0.4 Mg UT UD PRN 03/21/[address] ONE TABLET UNDER THE TONGUE EVERY 5 MINUTES FOR UP TO 3 DOSES IF NEEDED FOR CHEST PAIN Mag-Ox (Magnesium Oxide) 400 Mg Tab 400 Mg PO QAM 01/02/14 Reported Multivitamin (Multivitamins) Tab 1 Tab PO QAM 09/19/11 Reported Vital Signs Weight (Kilograms): 56.36 Height (Feet): 5 Height (Inches): 4.5 Date Time Temp Pulse Resp B/P (MAP) Pulse Ox O2 Delivery O2 Flow Rate FiO2 06/07/17 14:36 36.7 80 18 140/87 (104) 99 Room Air Physical Exam General Appearance: WD/WN, no apparent distress Respiratory/Chest: Auscultation: breath sounds normal Cardiovascular: Heart Auscultation: RRR Abdomen: Bowel Sounds: normal Inspection & Palpation: soft, non-distended, no tenderness, guarding & rebound Assessment and Plan Assessment: 67 yo CF who presents for colonoscopy secondary to family history of colon cancer. Plan: Proceed with colonoscopy.
--- NOTE | 2017-06-07 15:35 | Anesthesiology Progress Note ---
Anesthesia Post Op Note Date & Time Jun 07, 2017 at 15:35 Vital Signs Vital Signs Past 12 Hours Date Time Temp Pulse Resp B/P (MAP) Pulse Ox O2 Delivery O2 Flow Rate FiO2 06/07/17 15:32 75 18 95/66 (76) 98 Room Air 06/07/17 14:36 36.7 80 18 140/87 (104) 99 Room Air Notes Mental Status: alert / awake / arousable, participated in evaluation Pt Amnestic to Procedure: Yes Nausea / Vomiting: adequately controlled Pain: adequately controlled Airway Patency, RR, SpO2: stable & adequate BP & HR: stable & adequate Hydration State: stable & adequate Anesthetic Complications: no major complications apparent
--- NOTE | 2017-06-07 15:46 | GI REPORT ---
Procedure Date: 06/07/2017 2:47 PM Procedure: Colonoscopy Indications: Family history of colon cancer in a first-degree relative Medicines: Monitored Anesthesia Care Complications: No immediate complications. Estimated Blood Loss: Estimated blood loss: none. Procedure: Pre-Anesthesia Assessment: - Prior to the procedure, a History and Physical was performed, and patient medications and allergies were reviewed. The patient's tolerance of previous anesthesia was also reviewed. The risks and benefits of the procedure and the sedation options and risks were discussed with the patient. All questions were answered, and informed consent was obtained. Prior Anticoagulants: The patient has taken aspirin, last dose was 1 day prior to procedure. ASA Grade Assessment: III - A patient with severe systemic disease. After reviewing the risks and benefits, the patient was deemed in satisfactory condition to undergo the procedure. After I obtained informed consent, the scope was passed under direct vision. Throughout the procedure, the patient's blood pressure, pulse, and oxygen saturations were monitored continuously. The On-site loaner was introduced through the anus and advanced to the terminal ileum. The colonoscopy was performed without difficulty. The patient tolerated the procedure well. The quality of the bowel preparation was good. The terminal ileum, ileocecal valve, appendiceal orifice, and rectum were photographed. Findings: The perianal and digital rectal examinations were normal. Non-bleeding internal hemorrhoids were found during retroflexion. The hemorrhoids were medium-sized. Impression: - Non-bleeding internal hemorrhoids. - No specimens collected. Recommendation: - Resume previous diet. - Continue present medications. - Repeat colonoscopy in 5 years for surveillance. - Return to primary care physician as previously scheduled. Jesse Blackmon, 06/07/2017 3:46:16 PM This report has been signed electronically. Note Initiated On: 06/07/2017 2:47 PM I attest to the content of the Intraoperative Record and orders documented therein, exceptions below
--- NOTE | 2017-06-07 15:47 | Discharge Instructions ---
Endoscopy Patient Instructions Date / Procedure(s) Performed Jun 07, 2017. Colonoscopy Allergy Information Coded Allergies: No Known Allergies (Verified , 06/07/17) Discharge Date / Findings Jun 07, 2017. Internal hemorrhoids Medication Instructions Stopped Medication(s): Patient only took metoprolol and ranitidine this am. OK to resume all medications today as prescribed Reported Home Medications Medications Dose Route/Sig Max Daily Dose Days Date Category Dose Instructions Coenzyme Q10 (Coenzyme Q10 (Ubidecarenone)) 100 Mg Tab 1 Tab PO BID 05/20/17 Reported Vagifem (Estradiol Vaginal) 10 Mcg Tab 1 Tab PV 2XWK 05/20/17 Reported Zantac (Ranitidine HCl) 150 Mg Tab 150 Mg PO BID 05/20/17 Reported Keri Allergy (Fexofenadine Hcl) 180 Mg Tab 1 Tab PO QAM 05/20/17 Reported D 2000 (Cholecalciferol) 2,000 Unit Tab 1 Tab PO QAM 05/20/17 Reported Vitamin B-12 (Cyanocobalamin) 1,000 Mcg Tab 1,000 Mcg PO QAM 09/25/16 Reported [place]-3 (Fish Oil) 1 Ea Cap 1,000 Mg PO BID 09/25/16 Reported Lipitor (Atorvastatin Calcium) 20 Mg Tab 20 Mg PO QPM 09/25/16 Reported Promethazine HCl 25 Mg Tab 25 Mg PO Q6H PRN 03/21/16 Reported Tylenol (Acetaminophen) 500 Mg Tab 1,000 Mg PO UD PRN 03/21/16 Reported Aspirin Ec (Aspirin) 81 Mg Tab 81 Mg PO QAM 03/21/16 Reported Lopressor (Metoprolol Tartrate) 25 Mg Tab 25 Mg PO BID 03/21/16 Reported Nitrostat (Nitroglycerin) 0.4 Mg Sub 0.4 Mg UT UD PRN 03/21/[address] ONE TABLET UNDER THE TONGUE EVERY 5 MINUTES FOR UP TO 3 DOSES IF NEEDED FOR CHEST PAIN Mag-Ox (Magnesium Oxide) 400 Mg Tab 400 Mg PO QAM 01/02/14 Reported Multivitamin (Multivitamins) Tab 1 Tab PO QAM 09/19/11 Reported Provider Instructions Activity Restrictions - No exercising or heavy lifting for 24 hours. - Do not drink alcohol the day of the procedure. - Do not drive a car or operate machinery until the day after the procedure. - Do not make any important decisions or sign important papers in 24 hours after the procedure. Following Day: - Return to full activity which may include returning to work/school. Diet Start your diet with liquids and light foods (jello, soup, juice, toast). Then eat your usual diet if not nauseated. Treatment For Common After Affects For mild abdominal pain, bloating, or excessive gas: - Rest - Eat lightly - Lie on right side Follow-Up Information Follow-up with Dr. Kirk Palm as scheduled Anesthesia Information What You Should Know You have had a procedure that required some medicine to reduce anxiety and discomfort. This treatment is called moderate sedation. After receiving the treatment, you may be sleepy, but you will be able to breathe on your own. The effects of the treatment may last for several hours. Follow these instructions along with Activity/Diet recommendations noted above: * Do NOT do anything where dizziness or clumsiness would be dangerous. * Rest quietly at home today, then you can be up and about tomorrow. * Have a responsible person stay with you the rest of today. * You may have had an I.V. today. If so, you may take the dressing off later today. Recommendations Call your doctor if: * Trouble breathing * Continuous vomiting for more than 24 hours * Temperature above 101 degrees * Severe abdominal pain or bloating * Pain not relieved by pain medicine ordered * There is increased drainage or redness from any incision * A large amount of rectal bleeding greater than 2-3 tablespoons. (If you had a polyp/s removed or have hemorrhoids, a small amount of blood - from the rectum is to be expected.) * You have any unanswered questions or concerns. IN THE EVENT OF A SERIOUS EMERGENCY, GO TO THE NEAREST EMERGENCY ROOM Your discharge instructions were prepared by provider Jesse Blackmon. Patient Instructions Signature Page Katrin Gasca Patient (or Guardian) Signature/Date: I have read and understand the instructions given to me by my caregivers. Caregiver/RN/Doctor Signature/Date: The above-named patient and/or guardian has received patient instructions on this date. + Original Patient Signature Page (only) stays with chart. Please make copy for patient.
[2017-06-07 15:56] VITALS: BP 110/69; PULSE 62; O2SAT 98
== END | disposition home or self-care (01) ==
LOC: C.GI 14:07
PROVIDERS: ATTEND Internal Medicine
DX: Z12.11 Encounter for screening for malignant neoplasm of colon (principal); K64.8 Other hemorrhoids; I25.2 Old myocardial infarction; I10 Essential (primary) hypertension; M81.0 Age-related osteoporosis without current pathological fracture; Z98.890 Other specified postprocedural states; Z79.899 Other long term (current) drug therapy; Z79.82 Long term (current) use of aspirin; I25.10 Atherosclerotic heart disease of native coronary artery without angina pectoris; Z90.89 Acquired absence of other organs; Z80.0 Family history of malignant neoplasm of digestive organs